=== PATIENT | female | born 1990 | race Caucasian/White ===

== ENCOUNTER 2017-02-09 05:41 | Day surgery (SDC) | payer OTHER ==
[2017-02-09] VITALS (10 sets, daily range): BP systolic 118–131; BP diastolic 50–72; PULSE 61–83; RESP 14–19; O2SAT 96–100
[~2017-02-09] VITALS: Ht 167.6 cm; Wt 80.2 kg
[~2017-02-09 05:41] MED LIST: SERT25TA6 PO
[2017-02-09] MEDS ORDERED: Succinylcholine Chloride 20 mg/mL 5 mL Inj ONE (05:42)
[2017-02-09] MEDS ORDERED: fentaNYL-PF 50 mCg/mL 2 mL Inj ONE (05:42)
[2017-02-09] MEDS ORDERED: Propofol 10,000 mCg/mL 20 mL Inj ONE (05:42)
[2017-02-09] MEDS ORDERED: Ondansetron 2 mg/mL 2 mL Inj ONE (05:42)
[2017-02-09] MEDS ORDERED: Glycopyrrolate 0.2 MG/ML 1mL Inj ONE (05:42)
[2017-02-09] MEDS ORDERED: Dexamethasone 4 mg/mL Inj ONE (05:42)
[2017-02-09] MEDS ORDERED: Neostigmine 1 mg/mL 10 mL Inj ONE (05:42)
[2017-02-09] MEDS ORDERED: MetoCLOpramide 5 mg/mL 2 mL Inj ONE (05:42)
[2017-02-09] MEDS ORDERED: Rocuronium 10 mg/mL 5 mL Inj ONE (05:42)
[2017-02-09] MEDS: Lactated Ringer's 1,000 ML IV SCH ×2 (05:44→07:25)
[2017-02-09] MEDS ORDERED: Lactated Ringer's 500 ML IV PRN (07:50)
[2017-02-09] MEDS ORDERED: Phenylephrine 10,000 mCg/mL Inj IVPUSH PRN (07:50)
[2017-02-09] MEDS ORDERED: EPHEDrine Sulfate 50 mg/mL Inj IVPUSH PRN (07:50)
[2017-02-09] MEDS ORDERED: MetoCLOpramide 5 mg/mL 2 mL Inj IVPUSH PRN ×2 (07:50→08:45)
[2017-02-09] MEDS ORDERED: Lactated Ringer's 1,000 ML IV SCH (07:50)
[2017-02-09] MEDS ORDERED: Atropine 0.4 mg/mL Inj IVPUSH PRN (07:50)
[2017-02-09] MEDS ORDERED: fentaNYL-PF 50 mCg/mL 2 mL Inj IVPUSH PRN (07:50)
[2017-02-09] MEDS ORDERED: Labetalol 5 mg/mL 4 mL Inj IV PRN (07:50)
[2017-02-09] MEDS ORDERED: Ondansetron 2 mg/mL 2 mL Inj IVPUSH PRN (07:50)
[2017-02-09] MEDS ORDERED: HYDROmorphone 1 mg/mL Inj IVPUSH PRN (07:50)
--- NOTE | 2017-02-09 07:50 | PCM.HPANE ---
Patient Data Surgeon Admitting Provider: Attending Provider:Katt Juárez MD Primary Care Physician:Karen Other Provider:Audrey Gallagher Anesthesia Reason for Visit Family Planning Ht/WT & BMI Height (Feet): 5 Height (Inches): 6.00 Weight (Kilograms): 80.2 Body Mass Index 28.00 Allergies Coded Allergies: No Known Allergies (Verified Allergy, 08/20/13) Past Anesthesia History Anesthesia History: Denies:: Abnormal Airway, Anesthesia Reactions, Difficult Intubation, Fam Anesthesia Reaction, Fam Malignant Hypertherm, Malignant Hyperthermia Diabetes History Hx Diabetes?: No MRSA MRSA: No Medications Hypertension Medication: No Home Meds Incl Beta Carlos: No Reported Medications Sertraline HCl (Sertraline)25 Mg [id number] Mg PO DAILY 30 Days Ref 0 02/08/17 Discontinued Reported Medications [Ortho Evra] No Conflict Check1 Patch.bwk TOP QW 11/13/11 Norgestimate-Ethinyl Estradiol 1 Each Tablet1 Each TD weekly 11/07/11 History History of ENT Problems?: Yes HEENT History: Positive for:: Sinus Problem (SINUS HEADACHS AND NASOPHARYNGITIS) Denies:: Abnormal Airway Cataracts Difficult Intubation Dysphagia Glaucoma Hearing Problem TMJ Denture Type: None Teeth Condition: Within Normal Limits Hx of Heart Problems?: No Cardiovascular History: Denies:: AICD Abdominal Aortic Aneurism Atrial Fibrillation Cardiac Surgery Chest Pain Congestive Heart Failure Coronary Artery Disease Edema Heart Murmur Hypertension Irregular Heartbeat Pacemaker Peripheral Vascular Rheumatic Fever Thrombophlebitis Valvular Heart Disease Hx of Respiratory Problem?: No Respiratory History: Denies:: Asthma COPD Chest Surgery Cough Dyspnea Emphysema Hemoptysis Oxygen Administration Pneumonia Pulmonary Embolism Tuberculosis Use of C-PAP Machine Use of Inhalers / NEBS Hx Neurologic Problems?: No Hx of GI Problems?: No Hx of Problems?: No Female Hx: Positive for:: Problems with Breasts? (LARGE LT BREAST FIBROADENOMA =CURRENT PROBLEM) Denies:: Currently Skin History: Denies:: History Skin Disorders? Pressure Ulcers Hx Musculoskeletal Problems?: Yes Hx of Psycho/Social Problems?: Yes Psycho Social History: Positive for:: Anxiety Hx Depression Hx Surgeries?: Yes (EXC PERIORBITAL DERMOID CYST IN CHILDHOOD) Hx Any Other Health Problems?: No Other History: Denies:: Cancer Endocrine Disease Hospitalization Thyroid Disease History Blood Transfusions: Denies:: Blood Transfusions Hx Diabetes: No Hx Alcohol Use: NoHx Substance Use: No Stop/Bang S-Snoring: Do You Snore Loudly: No T-Tired: feel tired, fatigued: No O-Obsered: Observed not breath: No P-Blood Pressure: treated: No B- Body Mass Index > 35 kg/m2: No A- Age over 50: No N- Neck Large Circumference: No G- Gender Male: No MARTHA Total Score: 0 MARTHA Risk Assessment: Low Risk, <3 Yes Risk Assessment Category Category 1A: Patient has history of documented sleep apnea, and HAS NOT received any narcotic, sedative or anesthesia administration during this stay. Category 1B: Patient has history of documented sleep apnea, and HAS received any narcotic , sedative or anesthesia administration during this stay Category 2: Patient has SUSPECTED Obstructive Sleep Apnea, and HAS received any narcotic , sedative or anesthesia administration during this stay. Category 3: Patient has SUSPECTED Obstructive Sleep Apnea and HAS NOT received narcotic, sedative or anesthesia administration during this stay. Category 4: Outpatient in Procedural Areas with known sleep apnea or who screen positive for High Risk via the STOP/BANG questionnaire. Exam Exam Vital Signs Vital Signs Date Time Temp Pulse Resp B/P Pulse Ox O2 Delivery O2 Flow Rate FiO2 02/09/17 06:05 36.0 65 16 118/50 96 Room Air General Appearance: Alert, Oriented X3, Cooperative, No Acute Distress HEENT/AIRWAY: MP 1 Lungs: Clear to Auscultation, Normal Air Movement Heart: Exam Unremarkable, Regular Rate/Rhythm, No Murmurs/Rubs/Gallops Meds/Labs/Diagnostics Admission Meds Current Medications Lactated Ringer's (Lr) 1,000 ml @ 120 mls/hr Q8H20M IV Last administered on t 05:44; Start 02/09/17 at 05:00; Stop 02/09/17 at 13:19 Plan Impression Patient chart reviewed, patient interviewed and anesthestic plan with risks, benefits, and alternatives discussed, and informed consent obtained. NPO per Anesth. Guidelines: Yes ASA Physical Status: ASA1 Normal Healthy Anesthetic Plan: GA Bene/Risks/Altern/Consents: Yes HP Complete Prior to Induction: Yes Toby Au MD Feb 09, 2017 07:14
[2017-02-09] MEDS ORDERED: Bupivacaine-MPF 0.25%/EPI 30 mL Inj INJ ONE (08:18)
[2017-02-09] MEDS ORDERED: diphenhydrAMINE 25 mg Capsule PO PRN (08:45)
--- NOTE | 2017-02-09 08:50 | PCM.DIGYN ---
Surgical Discharge Instruction Dates of Hospitalization Date of Hospital Admission Providers Admitting Physician: Primary Care Physician: Karen Attending Physician: Katt Juárez MD Diet Discharge Diet: No restrictions Activity Discharge Activity-General: Balance rest and activity, No lifting >15 pounds for 2 weeks, No lifting >10 pounds for 4-6 weeks, No driving while taking narcotic Dressing and Incisional Care Dressing Care: Keep dressing clean, dry & intact, Allow Steri Stripes to fall off, Remove outer dressing after 24 hrs Hygiene: May shower, Wash incision with soap & water, DO NOT soak incision under water, NO bathtub, hot tub or whirlpool Follow Up Plan Follow-up Provider (F9): Katt Juárez MD Follow-up appointment: Weeks (2) Call your provider for: Fever, Chills, Shortness of breath, Vomitting, Drainage at incision, Heavy vaginal bleeding, Wound redness, Increasing pain Lucy Morrison DO Feb 09, 2017 08:50
[2017-02-09] MEDS ORDERED: OXYC1TAB24 PO (08:57)
--- NOTE | 2017-02-09 09:01 | PCM.ANEP1 ---
Post Anesthesia Phase 1 PACU Phase 1 Assessment Vital Signs Vital Signs Date Time Temp Pulse Resp B/P Pulse Ox O2 Delivery O2 Flow Rate FiO2 02/09/17 08:50 83 14 125/68 100 Nasal Cannula 2 02/09/17 08:49 36.4 83 14 131/70 100 Nasal Cannula 2 02/09/17 06:05 36.0 65 16 118/50 96 Room Air Anesthetic Administered: GA Level of Alertness: Awake, talking PADGETT's with Equal Strength: Yes Pain: No Nausea or Vomiting: No Cardiovascular Function and Hy: Yes Oxygen Delivery: Nasal Cannula Lungs: Clear to Auscultation, Normal Air Movement Complications: No Follow up Care: No Patient Instructions Provided: Yes (per RN and carbon lamp cleaner) Toby Au MD Feb 09, 2017 09:01
--- NOTE | 2017-02-09 09:07 | PCM.SURGOP ---
Surgical Operative Report Date of Service: Feb 09, 2017 Pre Operative Diagnosis Sterilization Post Operative Diagnosis Sterilization Procedure: 1. Laparoscopic bilateral tubal ligation using Filshie clips 2. Lysis of a single adhesion 3. Removal of Mirena IUD Surgeon and Hospice Liaison: Surgeon: Katt Juárez MD Resident: Lucy Morrison DO PGY1 Indication for Procedure 26-year-old 2 para 2 who desires permanent sterilization. Findings: Intraoperative findings showing a normal-appearing uterus, fallopian tubes and ovaries bilaterally. The appendix was normal in appearance. Patient had a single omental adhesion adherent to the anterior abdominal wall on the right side of her abdomen. This extended from her upper abdomen almost into her lower pelvis. There was no evidence of any endometriosis. Procedure Details The patient was taken to the operating room where her general anesthesia was obtained without difficulty. She was placed in the lithotomy position in the [facility]. Draped in normal sterile fashion. A surgical timeout was performed. A speculum was inserted into the patient's vagina and cervix was identified and the Mirena IUD strings were grasped with a Naomi clamp and the IUD was removed. A tenaculum was applied to the anterior cervix and an acorn uterine manipulator was inserted. The speculum was removed from patient's vagina. Attention was then turned patient's abdomen where the umbilicus was injected with 10ml of 0.25% Marcaine with epinephrine. A varies needle was inserted at the base patient's umbilicus into the patient's peritoneal cavity. Needle aspirate water drop test were negative and confirmatory. The initial opening pressures were high so the varies needle was removed and reinserted. Opening pressures were less than 5 and a pneumoperitoneum was obtained with CO2 gas to approximately 15 mmHg. An 11 mm skin incision was made at the base of the umbilicus and an 11 mm applied balloon trocar was inserted using the [employer] Network[employer] function device. Intraperitoneal placement was confirmed with the laparoscope. Survey of the abdomen and pelvis was noted above. The uterus was mobilized and fallopian tubes were identified and followed out to fimbriated ends. Filshie clips were applied to both fallopian tubes approximately 3 cm from the cornual region. Good placement was confirmed. At this point the small adhesion to the right anterior abdominal wall was transected with scissors. This incision was hemostatic. All attachments were then removed from the patient's abdomen and the pneumoperitoneum was released. The fascia was reapproximated with 0 Vicryl in a dlvpxr-go-rphak fashion. Skin was closed with 4-0 Monocryl in a subcutaneous fashion and Dermabond applied. An additional 10 mL of 0.25% Marcaine with epinephrine was injected in the umbilicus of the case. The acorn uterine manipulator was removed from patient's vagina and good hemostasis was assured. All lap instrument and needle counts were correct 2 at the end of the procedure and the patient was taken to the recovery room awake and in good condition. Complications There were no periprocedural complications identified. Surgical Specimen Removed: No Specimen sent to Pathology: No Anesthetic Plan: GA Grafts, Implants: None Output, Estimated Blood Loss: 0 Blood Administration during rosas: No Stent(s) None Drains: None Catheters: None Post Operative Plan Discharge patient home when awake and stable Katt Juárez MD Feb 09, 2017 09:06
[2017-02-09] MEDS: oxyCODONE-Acetamin 5-325 mg Tablet PO PRN ×2 (09:37→10:30)
== END 2017-02-09 23:59 | disposition home or self-care (01) ==
LOC: SAS 05:41
PROVIDERS: ATTEND Obstetrics & Gynecology
DX: Z30.2 Encounter for sterilization (principal); K66.0 Peritoneal adhesions (postprocedural) (postinfection); F41.9 Anxiety disorder, unspecified; F39 Unspecified mood [affective] disorder; Z97.5 Presence of (intrauterine) contraceptive device
CPT/HCPCS: 58301; 58671; J0330; J1100; J1885; J2175; J2250; J2405; J2710; J2765; J3010; J7120